=== PATIENT | female | born 1975 | race Caucasian/White ===

== ENCOUNTER → 2017-08-22 16:37 | Outpatient (CLI) | payer OTHER ==
[~2017-08-22 16:37] MED LIST: BYSTOLIC10 MG PO; CLIMARA 0.0.1 MG/PAT TRANSDERM; IBUPROFEN600 MG PO; KLONOPIN1 MG PO; LAMICTAL200 MG PO; LEXAPRO10 MG PO; PERCOCET 5-3251 TAB PO
== END | disposition home or self-care (01) ==
LOC: D.MAMMO 08-16 10:00 → D.US 08-16 11:00 → D.MAMMO 10:30
DX: N64.4 Mastodynia (principal)